=== PATIENT | female | born 1980 | race Caucasian/White ===

== ENCOUNTER → 2016-10-08 | Outpatient (CLI) | payer OTHER ==
[2016-10-08 21:33] LABS: Dermato. farinae IgE <0.10 kU/L; Egg White IgE <0.10 kU/L
[2016-10-08 21:34] LABS: Peanut IgE <0.10 kU/L; Soybean IgE <0.10 kU/L
[2016-10-09 14:08] LABS: Gliadin AB IgA, Deaminated 10 UNITS (<20); Gliadin AB IgG, Deaminated 3 UNITS (<20)
[2016-10-09 14:14] LABS: Beef IgE <0.35 kU/L (<0.35); Beef IgE Class CLASS 0; Chicken IgE Class CLASS 0
[2016-10-16 16:10] LABS: Mis test requested (Blood) Celiac Disease
== END | disposition home or self-care (01) ==
LOC: LABWHC1 14:31
PROVIDERS: ATTEND Allergy & Immunology
DX: R19.7 Diarrhea, unspecified (principal); R11.0 Nausea
CPT/HCPCS: 36415; 81376; 81383; 82784; 83516; 86003

== ENCOUNTER → 2024-08-03 | Day surgery (SDC) | payer BC ==
[2024-08-01 14:41] VITALS: BMI 30.1
[~2024-08-03] MED LIST: GLYCOPYRROLATE 0.2 MG/ML 2 ML VIAL ONE; LIDOCAINE 1% (10MG/ML) FOR IV START INTRADERMA PRN; LIDOCAINE 1% INJ 10MG/ML (20 ML MDV) ONE; MIDAZOLAM 2 MG/2 ML VIAL ONE; NEOSTIGMINE 1 MG/ML 10 ML VIAL ONE; PHENYLEPHRINE 10 MG/ML VIAL ONE; PROPOFOL 10 MG/ML 20 ML VIAL IV ONE; ROCURONIUM 10 MG/ML (5 ML VIAL) IV ONE; droPERidol 5 MG/2 ML VIAL IVP ONE; fentaNYL (PF) 50 MCG/ML 2 ML AMP ONE
[2024-08-03] MEDS: IV FLUID CONTINUATION 1,000 ML IV ONE ×3 (06:44→09:16)
[2024-08-03] MEDS: OXYMETAZOLINE 0.05% NASL SPRAY 1 SPRAY BOTTLE EA NOSTRIL PRN (06:53)
[2024-08-03] MEDS: ONDANSETRON 4 MG/2 ML VIAL IVP ONE (07:17)
[2024-08-03] MEDS: FAMOTIDINE 20 MG/2 ML VIAL IV PRN (07:17)
[2024-08-03] MEDS: DEXAMETHASONE SOD PHOSPHATE 4 MG/ML 1 ML VIAL IV ONE (07:17)
[2024-08-03] MEDS: LACTATED RINGERS 1,000 ML IV SCH (07:26)
[2024-08-03] MEDS: LIDOCAINE 1%-EPI 1:100,000 20 ML VIAL SUBMUCOSAL ONE ×2 (07:41)
[2024-08-03] MEDS: BACITRACIN ZINC 500 UNIT/GM OINT 28.4 GM TUBE TOPICAL ONE (07:46)
--- NOTE | 2024-08-03 08:23 | P.OP ---
Date of Procedure: 08/03/24 Preoperative Diagnosis: deviated nasal septum Inferior turbinate hypertrophy Chronic left-sided maxillary sinusitis Postoperative Diagnosis: same Procedure(s) Performed: septoplasty Inferior turbinoplasty Left-sided endoscopic sinus surgery including left mary bullectomy and left maxillary antrostomy Anesthesia: JUAN Surgeon: Samir Alvarado Estimated Blood Loss (ml): 5 Pathology: other (nasal septal bone and cartilage and sinus contents) Condition: stable Disposition: PACU Indications for Procedure: 44 -year-old white female with difficulties with chronic nasal airway obstruction congestion and left maxillary pressure and discomfort chronically Operative Findings: bilateral nasal septal deviation but chiefly to the left with inferior turbinate hypertrophy and left mary bullosa cell. There is also obstruction of the left maxillary ostium Description of Procedure: DESCRIPTION OF PROCEDURE: The patient was brought to the operative suite, placed in the supine position. The patient underwent induction of general anesthesia with oral endotracheal intubation without difficulty. The patient was prepped and draped in the usual aseptic fashion.laboratory in the operating field for monitoring to the case computed tomography scan was on the computer screen for review throughout the case 1% lidocaine with 1:100,000 epinephrine was infused submucosally on both sides of the nasal septum. While this was taking vasoco nstrictive effect, the inferior turbinates were infractured with a [place] elevator. Partial submucous resection of the inferior turbinates was performed with Coblation device ablating a portion of the submucosal soft tissue. The inferior turbinates were then outfractured with a [place] elevator. A left hemitransfixion incision was then made through the mucoperichondrial. Mucoperiosteal flap on the left elevated. Bony cartilaginous junction was disarticulated and mucoperiosteal flap on the right was elevated. Bony nasoseptal deformity were removed with Matt forceps and an inferior cartilaginous strip was removed, leaving a full 1.5 cm caudal strut. Checking intranasally, this corrected the nasal septal deformities and the hemitransfixion incision was closed with running 4-0 chromic suture. full 0 endoscopic examination is performed bilaterally. Proceeding on the left, a mary bullectomy was performed with microdebrider. The maxillary ostium was located with a ballpoint probe and infundibulotomy was performed followed by uncinectomy. As elected to proceed with standard maxillary antrostomy with side-biting forceps. The balloon sinus plasty which would've limited the opening into the maxillary sinus. This was performed with precautions to protect the lacrimal bone anteriorly. The maxillary sinus was evaluated with a 30 and 70 endoscope mild mucosal thickening noted. Once this completed a pledget of 0 to nasal dressing was laced in the middle meatus under direct visualization. The bilateral Duffy airway splints coated in bacitracin ointment were placed in the nasal cavities and sutured transseptally with 4-0 nylon suture. The patient was then suctioned in an orogastric fashion. The patient was allowed to emerge from general anesthesia, having tolerated the procedure well and was extubated in the operating suite, transferred to postoperative recovery area in satisfactory condition.
[2024-08-03 08:39] VITALS: TEMP 96.8
[2024-08-03] MEDS: HYDROmorphone 0.5 MG/0.5 ML SYRINGE IVP PRN (08:50)
[2024-08-03 09:25] VITALS: RESP 14
[2024-08-03 09:37] VITALS: BP 132/82; PULSE 70
== END | disposition home or self-care (01) ==
LOC: OR 06:14
PROVIDERS: ATTEND Otolaryngology
DX: J34.2 Deviated nasal septum (principal); J34.3 Hypertrophy of nasal turbinates; J32.0 Chronic maxillary sinusitis; J34.89 Other specified disorders of nose and nasal sinuses; I10 Essential (primary) hypertension; E11.9 Type 2 diabetes mellitus without complications; E78.00 Pure hypercholesterolemia, unspecified; G47.30 Sleep apnea, unspecified; E07.9 Disorder of thyroid, unspecified; K21.9 Gastro-esophageal reflux disease without esophagitis; G43.909 Migraine, unspecified, not intractable, without status migrainosus; F32.A Depression, unspecified; Z91.89 Other specified personal risk factors, not elsewhere classified; Z79.890 Hormone replacement therapy; Z79.899 Other long term (current) drug therapy; Z87.892 Personal history of anaphylaxis; Z91.040 Latex allergy status; Z88.8 Allergy status to other drugs, medicaments and biological substances; Z88.6 Allergy status to analgesic agent
CPT/HCPCS: 88305; 88300; 30520; 30140; 31240; 31256; 61782; J2250; J1100; J2710; J0690; J2405; J2003; J3010; J3490; J2704; J1171; J2371; J1596